=== PATIENT | male | born 1965 | race Caucasian/White ===

== ENCOUNTER 2016-10-14 05:23 | Emergency (ER) | payer OTHER ==
--- NOTE | 2016-10-14 06:35 | RADIOLOGY REPORT (SQ) ---
EXAM DESCRIPTION: CT HEAD WITHOUT COMPLETED DATE/TIME: 10/14/2016 6:20 am REASON FOR STUDY: new onset seizure COMPARISON: None. TECHNIQUE: Axial images acquired through the brain without intravenous contrast. Images reviewed wi th bone, brain and subdural windows. Images stored on PACS. All CT scanners at this facility use dose modulation, iterative reconstruction, and/or weight based d osing when appropriate to reduce radiation dose to as low as reasonably achievable (ALARA). [facility]: Dose Right [facility]: CareDose [facility]: Dose Right [facility]: Teradose 4D [facility]: Smart Fonality RADIATION DOSE: Up-to-date CT equipment and radiation dose reduction techniques were employed. CTDIv ol: 64.6 mGy. DLP: 1163 mGy-cm. mGy. LIMITATIONS: None. FINDINGS: VENTRICLES: Normal size and contour. CEREBRUM: No masses. No hemorrhage. No midline shift. Normal jensen/white matter differentiation. N o evidence for acute infarction. CEREBELLUM: No masses. No hemorrhage. No alteration of density. No evidence for acute infarction. EXTRAAXIAL SPACES: No fluid collections. No masses. ORBITS AND GLOBE: No intra- or extraconal masses. Normal contour of globe without masses. CALVARIUM: No fracture. PARANASAL SINUSES: No fluid or mucosal thickening. SOFT TISSUES: No mass or hematoma. OTHER: No other significant finding. IMPRESSION: No acute intracranial abnormality identified. TECHNICAL DOCUMENTATION: JOB ID: [id number] Quality ID # [id number]: Final reports with documentation of one or more dose reduction techniques (e.g., Au tomated exposure control, adjustment of the mA and/or kV according to patient size, use of iterative reconstruction technique) 2010 [employer]- All Rights Reserved
[2016-10-14 06:53] LABS: ABSOLUTE EOSINOPHILS # (AUTO) 0.1 10^3/uL (0.0-0.6); ABSOLUTE MONOCYTES (AUTO) 0.4 10^3/uL (0.1-1.4); ABSOLUTE NEUT (AUTO) 3.9 10^3/uL (1.7-8.2); BASOPHILS % (AUTO) 0.7 % (0-2); EOSINOPHILS % (AUTO) 2.2 % (0-6); HEMATOCRIT 40.6 % (37.9-51.0); HGB HCT DIFFERENCE 1.4; LYMPHOCYTES % (AUTO) 17.9 % (13-45); MEAN CORPUSCULAR HEMOGLOBIN 32.4 pg (27.0-33.4); MEAN CORPUSCULAR HGB CONC 34.4 g/dL (32.0-36.0); MEAN CORPUSCULAR VOLUME 94 fl (80-97); MONOCYTES % (AUTO) 7.5 % (3-13); RED BLOOD COUNT 4.31 10^6/uL (4.35-5.55); RED CELL DISTRIBUTION WIDTH 13.1 % (11.5-14.0); SEGMENTED NEUTROPHILS % (AUTO) 71.7 % (42-78); WHITE BLOOD COUNT 5.5 10^3/uL (4.0-10.5)
[2016-10-14 07:00] LABS: ALANINE AMINOTRANSFERASE 16 U/L (21-72); ALBUMIN 4.4 g/dL (3.5-5.0); ALKALINE PHOSPHATASE 91 U/L (38-126); ANION GAP 14 (5-19); ASPARTATE AMINO TRANSFERASE 41 U/L (17-59); BILIRUBIN,DIRECT 0.4 mg/dL (0.0-0.4); BILIRUBIN,TOTAL 0.6 mg/dL (0.2-1.3); BLOOD UREA NITROGEN 16 mg/dL (7-20); CALCIUM 8.7 mg/dL (8.4-10.2); CARBON DIOXIDE 22 mmol/L (22-30); CHLORIDE 96 mmol/L (98-107); CREATININE RESULT 0.85 mg/dL (0.52-1.25); GLUCOSE 96 mg/dL (75-110); POTASSIUM 4.2 mmol/L (3.6-5.0); SODIUM 131.8 mmol/L (137-145); TOTAL PROTEIN 7.6 g/dL (6.3-8.2)
[2016-10-14 07:01] LABS: ALCOHOL < 10 mg/dL (NONE DETECTED)
--- NOTE | 2016-10-14 07:54 | ER Document Report ---
ED General - General Chief Complaint: Probable Seizure Stated Complaint: POSSIBLE SEIZURE/ALOC Time Seen by Provider: 10/14/16 05:50 Mode of Arrival: Ambulatory Information source: Patient Notes: 51-year-old male presents with seizure-like activity at home. Patient has a history of hyponatremia hyperkalemia. seizure lasted approximately 2 minutes. no hx of seizures. pt was shakng, foaming at the mouth, then confused after pt is now alert oriented, denies any pain, notes abrasion to the left hand TRAVEL OUTSIDE OF THE [place] IN LAST 30 DAYS: No - HPI Onset: Just prior to arrival Onset/Duration: Sudden Quality of pain: No pain Severity: Mild Pain Level: Denies Associated symptoms: None Exacerbated by: Denies Relieved by: Denies Similar symptoms previously: No Recently seen / treated by doctor: No - Related Data Allergies/Adverse Reactions: No Known Allergies Allergy (Unverified 11/16/12 08:09) Past Medical History - Social History Smoking Status: Unknown if Ever Smoked Cigarette use (# per day): No Chew tobacco use (# tins/day): No Smoking Education Provided: No Frequency of alcohol use: Heavy Family History: Reviewed & Not Pertinent Endocrine Medical History: Reports: Hx Hypothyroidism Past Surgical History: Reports: Hx Orthopedic Surgery - ACL REPAIR, Hx Thyroid Surgery - THYROID CANER SURGERY X 2. Review of Systems - Review of Systems Notes: REVIEW OF SYSTEMS: CONSTITUTIONAL : Denies fever, chills, or sweats. Denies recent illness. EENT: Denies eye, ear, throat, or mouth pain or symptoms. Denies nasal or sinus congestion or discharge. Denies throat, tongue, or mouth swelling or difficulty swallowing. CARDIOVASCULAR: Denies chest pain. Denies palpitations or racing or irregular heart beat. Denies ankle edema. RESPIRATORY: Denies cough, cold, or chest congestion. Denies shortness of breath, difficulty breathing, or wheezing. GASTROINTESTINAL: Denies abdominal pain or distention. Denies nausea, vomiting , or diarrhea. Denies blood in vomitus, stools, or per rectum. Denies black, tarry stools. Denies constipation. GENITOURINARY: Denies difficulty urinating, painful urination, burning, frequency, blood in urine, or discharge. MUSCULOSKELETAL: Denies back or neck pain or stiffness. Denies joint pain or swelling. SKIN: Denies rash, lesions or sores. HEMATOLOGIC : Denies easy bruising or bleeding. LYMPHATIC: Denies swollen, enlarged glands. NEUROLOGICAL: admits ot seizure like activity PSYCHIATRIC: Denies anxiety or stress. Denies depression, suicidal ideation, or homicidal ideation. ALL OTHER SYSTEMS REVIEWED AND NEGATIVE. Dictation was performed using [employer] voice recognition software PHYSICAL EXAMINATION: GENERAL: Well-appearing, well-nourished and in no acute distress. HEAD: Atraumatic, normocephalic. EYES: Pupils equal round and reactive to light, extraocular movements intact, sclera anicteric, conjunctiva are normal. ENT: Nares patent, oropharynx clear without exudates. Moist mucous membranes. NECK: Normal range of motion, supple without lymphadenopathy LUNGS: Breath sounds clear to auscultation bilaterally and equal. No wheezes rales or rhonchi. HEART: Regular rate and rhythm without murmurs ABDOMEN: Soft, nontender, nondistended abdomen. No guarding, no rebound. No masses appreciated. Musculoskeletal: Normal range of motion, no pitting or edema. No cyanosis. NEUROLOGICAL: Cranial nerves grossly intact. Normal speech, normal gait. Normal sensory, motor exams PSYCH: Normal mood, normal affect. SKIN: abrasion to the left hand dorsal aspect Physical Exam - Vital signs Vitals: BP Pulse Ox 144/93 H 98 10/14/16 05:26 10/14/16 05:26 Course - Re-evaluation Re-evalutation: 10/14/16 07:52 mild hyponatremia noted, pt had seizure like activity. pt denies any fevers or chills, nausea or vomiting. pt ct head was negative pt overall at baseline, requests dc home pt not allowed to drive until cleared by neurology After performing a Medical Screening Examination, I estimate there is LOW risk for ACUTE GLAUCOMA, TEMPORAL ARTERITIS, MENINGITIS, INCRANIAL HEMORRHAGE, or ISCHEMIC STROKE thus I consider the discharge disposition reasonable. I have reevaluated this patient multiple times and no significant life threatening changes are noted. The patient and I have discussed the diagnosis and risks, and we agree with discharging home with close follow-up with the understanding that symptoms and presentations can change. We also discussed returning to the Emergency Department immediately if new or worsening symptoms occur. We have discussed the symptoms which are most concerning (e.g., changing or worsening symptoms, new numbness or weakness, vomiting, fever) that necessitate immediate return. - Vital Signs Vital signs: Temp Pulse Resp BP Pulse Ox 98.1 F 13 104/66 97 10/14/16 06:03 10/14/16 07:01 10/14/16 07:00 10/14/16 07:01 - Laboratory Result Diagrams: 10/14/16 05:38 10/14/16 05:38 Laboratory results interpreted by me: 10/14/16 10/14/16 05:38 05:38 RBC 4.31 L Plt Count 147 L Sodium 131.8 L Chloride 96 L ALT 16 L - Diagnostic Test Radiology reviewed: Image reviewed, Reports reviewed - No acute abnormality - EKG Interpretation by Me EKG shows normal: Sinus rhythm, [place], Intervals, QRS Complexes Discharge - Discharge Clinical Impression: Hyponatremia, Seizure-like activity Condition: Stable Disposition: HOME, SELF-CARE Instructions: New Seizure ([facility]) Referrals: SUSANA TERRY MD [ACTIVE STAFF] - Follow up in 3-5 days
[2016-10-14 08:06] VITALS: BP 124/86
--- NOTE | 2016-10-16 13:59 | EKG REPORT ---
SEVERITY:- BORDERLINE ECG - SINUS RHYTHM BORDERLINE T ABNORMALITIES, INFERIOR LEADS : Confirmed by: Armida Mackey MD 16-Oct-2016 13:57:42
== END 2016-10-14 08:21 | disposition home or self-care (01) ==
LOC: ER 05:23
DX: R29.818 Other symptoms and signs involving the nervous system (principal); E87.1 Hypo-osmolality and hyponatremia; R41.0 Disorientation, unspecified; S60.512A Abrasion of left hand, initial encounter; X58.XXXA Exposure to other specified factors, initial encounter
CPT/HCPCS: 36415; 70450; 80053; 80307; 84443; 85025; 93005; 93010; 99285

== ENCOUNTER 2017-01-03 06:35 | Emergency (ER) | payer SELFPAY ==
[2017-01-03 07:05] LABS: ABSOLUTE EOSINOPHILS # (AUTO) 0.1 10^3/uL (0.0-0.6); ABSOLUTE LYMPHOCYTES (AUTO) 0.9 10^3/uL (0.5-4.7); ABSOLUTE MONOCYTES (AUTO) 0.3 10^3/uL (0.1-1.4); ABSOLUTE NEUT (AUTO) 3.3 10^3/uL (1.7-8.2); BASOPHILS % (AUTO) 0.6 % (0-2); EOSINOPHILS % (AUTO) 1.8 % (0-6); HEMATOCRIT 39.4 % (37.9-51.0); HEMOGLOBIN 13.4 g/dL (13.5-17.0); HGB HCT DIFFERENCE 0.8; LYMPHOCYTES % (AUTO) 19.3 % (13-45); MEAN CORPUSCULAR HEMOGLOBIN 31.7 pg (27.0-33.4); MEAN CORPUSCULAR VOLUME 93 fl (80-97); MONOCYTES % (AUTO) 6.7 % (3-13); RED BLOOD COUNT 4.22 10^6/uL (4.35-5.55); RED CELL DISTRIBUTION WIDTH 13.1 % (11.5-14.0); SEGMENTED NEUTROPHILS % (AUTO) 71.6 % (42-78); WHITE BLOOD COUNT 4.6 10^3/uL (4.0-10.5)
[2017-01-03 07:17] LABS: ALANINE AMINOTRANSFERASE 35 U/L (21-72); ALBUMIN 4.3 g/dL (3.5-5.0); ALKALINE PHOSPHATASE 72 U/L (38-126); ANION GAP 10 (5-19); ASPARTATE AMINO TRANSFERASE 26 U/L (17-59); BILIRUBIN,DIRECT 0.3 mg/dL (0.0-0.4); BILIRUBIN,TOTAL 0.7 mg/dL (0.2-1.3); BLOOD UREA NITROGEN 16 mg/dL (7-20); CALCIUM 8.8 mg/dL (8.4-10.2); CARBON DIOXIDE 28 mmol/L (22-30); CHLORIDE 95 mmol/L (98-107); CREATININE RESULT 0.85 mg/dL (0.52-1.25); GLUCOSE 94 mg/dL (75-110); MAGNESIUM 1.7 mg/dL (1.6-2.3); POTASSIUM 3.9 mmol/L (3.6-5.0); SODIUM 133.1 mmol/L (137-145)
[2017-01-03 07:20] LABS: ALCOHOL < 10 mg/dL (NONE DETECTED)
[2017-01-03] MEDS ORDERED: ONDANSETRON 4 MG TAB.RAPDIS PO ONE (07:27)
[2017-01-03] MEDS ORDERED: LEVETIRACETAM 500 MG TABLET PO ONE (07:28)
--- NOTE | 2017-01-03 07:28 | RADIOLOGY REPORT (SQ) ---
EXAM DESCRIPTION: CT HEAD WITHOUT COMPLETED DATE/TIME: 01/03/2017 7:06 am REASON FOR STUDY: seizure COMPARISON: 10/14/2016. TECHNIQUE: Axial images acquired through the brain without intravenous contrast. Images reviewed wi th bone, brain and subdural windows. Images stored on PACS. All CT scanners at this facility use dose modulation, iterative reconstruction, and/or weight based d osing when appropriate to reduce radiation dose to as low as reasonably achievable (ALARA). [facility]: Dose Right [facility]: CareDose [facility]: Dose Right [facility]: Teradose 4D [facility]: Smart [employer] RADIATION DOSE: Up-to-date CT equipment and radiation dose reduction techniques were employed. CTDIv ol: 64.6 mGy. DLP: 1163 mGy-cm. mGy. LIMITATIONS: None. FINDINGS: VENTRICLES: Normal size and contour. CEREBRUM: No masses. No hemorrhage. No midline shift. No evidence for acute infarction. Normal gra y/white matter differentiation. No areas of low density in the white matter. CEREBELLUM: No masses. No hemorrhage. No alteration of density. No evidence for acute infarction. EXTRAAXIAL SPACES: No fluid collections. No masses. ORBITS AND GLOBE: No intra- or extraconal masses. Normal contour of globe without masses. CALVARIUM: No fracture. PARANASAL SINUSES: Minimal right maxillary mucosal thickening. SOFT TISSUES: Moderate right periorbital and buccal soft tissue swelling. OTHER: No other significant finding. IMPRESSION: No acute intracranial findings. Moderate facial swelling. EVIDENCE OF ACUTE STROKE: NO. COMMENT: Quality ID # [id number]: Final reports with documentation of one or more dose reduction techniques (e.g., Automated exposure control, adjustment of the mA and/or kV according to patient size, use of iterative reconstruction technique) TECHNICAL DOCUMENTATION: JOB ID: [id number]- All Rights Reserved
--- NOTE | 2017-01-03 07:29 | ER Document Report ---
ED Seizure <SHIVANI MEDRANO - Last Filed: 01/03/17 08:34> - General Mode of Arrival: Ambulatory Information source: Patient - HPI Patient complains to provider of: History of seizures <RENATE ROA - Last Filed: 01/03/17 10:15> - General Chief Complaint: Probable Seizure Stated Complaint: POSSIBLE SEIZURE Time Seen by Provider: 01/03/17 07:11 Notes: Patient is a 51-year-old male who presents to the emergency department today secondary to possible seizure. Patient has had episodes like this in the past where he wakes up on the floor during his sleep and he does not know what happened. Patient states that he has been seen by a neurologist who did an MRI but he has not had an EGD done yet. Patient states he was scheduled for one last week but he had to miss it due to a work obligation. Patient has not been formally diagnosed with a seizure disorder yet. at bedside states she was in their daughter's room when they heard a noise, she found the patient on the floor. Patient states he does not remember anything. Patient complains of right-sided facial pain stating he thinks he hit is face on something during the episode. Patient was incontinent during this episode. (RENATE ROA) - Related Data Allergies/Adverse Reactions: No Known Allergies Allergy (Unverified 11/16/12 08:09) Past Medical History - General Information source: Patient - Social History Smoking Status: Never Smoker Cigarette use (# per day): No Frequency of alcohol use: Heavy - daily Drug Abuse: None Lives with: Family Family History: Reviewed & Not Pertinent Neurological Medical History: Reports: Hx Seizures Endocrine Medical History: Reports: Hx Hypothyroidism Past Surgical History: Reports: Hx Orthopedic Surgery - ACL REPAIR, Hx Thyroid Surgery - THYROID CANER SURGERY X 2. <RENATE ROA - Last Filed: 01/03/17 10:15> Review of Systems - Review of Systems Constitutional: No symptoms reported EENT: See HPI, Other - facial pain, swelling Cardiovascular: No symptoms reported Respiratory: No symptoms reported Gastrointestinal: No symptoms reported Genitourinary: No symptoms reported Male Genitourinary: No symptoms reported Musculoskeletal: No symptoms reported Skin: No symptoms reported Hematologic/Lymphatic: No symptoms reported Neurological/Psychological: See HPI, Seizure - ? <RENATE ROA - Last Filed: 01/03/17 10:15> Physical Exam <SHIVANI MEDRANO - Last Filed: 01/03/17 08:34> <RENATE ROA - Last Filed: 01/03/17 10:15> - Vital signs Vitals: Temp Pulse Resp BP Pulse Ox 97.9 F 63 16 143/83 H 92 01/03/17 06:41 01/03/17 06:41 01/03/17 06:41 01/03/17 06:41 01/03/17 06:41 - Notes Notes: Physical Exam: General: Alert, appears uncomfortable. HEENT: Normocephalic. Left pupil is elliptical in shape which is baseline, both pupils are reactive to light. Periorbital/eyelid ecchymosis, right eye is swollen shut. When eye is manually opened, patient has normal vision. Nose appears to be slightly deviated to the left but patient does not complain of pain with palpation of nose. Small bite stephanie to tip of tongue, no active bleeding. Swelling over right maxillary area. 2mm transverse laceration with slight oozing of blood. Extraocular movements intact. Oropharynx clear. Neck: Supple. Non-tender. Respiratory: No respiratory distress. Clear and equal breath sounds bilaterally. Cardiovascular: Regular rate and rhythm. Abdominal: Normal Inspection. Non-tender. No distension. Normal Bowel Sounds. Back: Non-tender. No deformity or step off. Extremities: Moves all four extremities. Upper extremities: Normal inspection. Normal ROM. Lower extremities: Normal inspection. No edema. Normal ROM. Neurological: Normal cognition. AAOx4. Normal speech. Psychological: Normal affect. Normal Mood. Skin: see HEENT (RENATE ROA) Course - Laboratory Result Diagrams: 01/03/17 06:40 01/03/17 06:40 - Diagnostic Test Radiology reviewed: Image reviewed, Reports reviewed - CT scans of the head and neck are unremarkable, CT scan of the face shows contusion with soft tissue swelling in the right buccal and periorbital tissues. There small gas bubbles in the deep soft tissues lateral to the right paracentral mandible. This is most likely due to the recent contusion. - EKG Interpretation by Ar EKG shows normal: Sinus rhythm, [place], Intervals, QRS Complexes. abnormal: ST-T Waves - Nonspecific inferior T abnormalities Rate: Normal - 67 Rhythm: NSR When compared to previous EKG there are: No significant change <SHIVANI MEDRANO - Last Filed: 01/03/17 08:34> - Laboratory Result Diagrams: 01/03/17 06:40 01/03/17 06:40 <RENATE ROA - Last Filed: 01/03/17 10:15> - Vital Signs Vital signs: Temp Pulse Resp BP Pulse Ox 97.6 F 63 14 132/82 H 95 01/03/17 09:01 01/03/17 06:41 01/03/17 09:01 01/03/17 09:01 01/03/17 09:01 - Laboratory Laboratory results interpreted by me: 01/03/17 01/03/17 06:40 06:40 RBC 4.22 L Hgb 13.4 L Plt Count 149 L Sodium 133.1 L Chloride 95 L Discharge <SHIVANI MEDRANO - Last Filed: 01/03/17 08:34> <RENATE ROA - Last Filed: 01/03/17 10:15> - Discharge Clinical Impression: Seizure Contusion of face Qualifiers: Encounter type: initial encounter Qualified Code(s): S00.83XA - Contusion of other part of head, initial encounter Condition: Stable Disposition: HOME, SELF-CARE Additional Instructions: Seizure You have had a seizure. Seizure disorders (epilepsy) of one sort or another affect about one out of 50 people. The seizure occurs because of abnormal electrical activity in the brain. Seizures may be due to drugs and alcohol, strokes, brain injury, or infection. In the most common form of epilepsy, no cause can be found. You will require further evaluation to determine the cause of your seizure, and to determine whether anti-seizure medication is required. This follow-up testing is important, so please call us if you encounter problems with scheduling of tests or appointments. YOU SHOULD NOT DRIVE until released to do so by your physician. The law requires that seizures be reported to the bus van driver's license bureau--a seizure while driving could be catastrophic. Call the doctor if seizures recur, or if you develop new symptoms such as fever, severe headache, stiff neck, confusion or increasing sleepiness, weakness or numbness, or visual problems. Contusion Your injury has resulted in a contusion -- a crushing of the deep tissues. No injury to important structures was detected during the physician's exam. Contusions vary in the amount of pain they cause, and in the length of time required for healing. Typically, the area will become bruised, and will remain painful to touch for two or three weeks. However, most patients are back to working and playing within a few days. After the initial period of rest and cold-packs, your symptoms (together with the doctor's recommendations) will determine how rapidly you can get back to full activity. Usually this means "do what feels okay, but don't do things that hurt." If re-examination was recommended, it's important to follow up as instructed. Call the doctor or return any time if pain increases, if swelling becomes severe, if you develop numbness or weakness in an injured extremity, or if any other alarming symptoms occur. TAKE THE MEDICATIONS PRESCRIBED. TAKE TYLENOL AND IBUPROFEN OR ALEVE FOR PAIN IF NEEDED. USE ICE-PACKS TODAY TO REDUCE THE SWELLING. FOLLOW UP WITH YOUR NEUROLOGIST. RETURN TO THE EMERGENCY ROOM IF ANY NEW OR WORSENING SYMPTOMS. Prescriptions: Amoxicillin Trihydrate [Amoxil 500 mg Capsule] 500 mg PO TID #21 cap Levetiracetam [Keppra 500 mg Tablet] 500 mg PO Q12 #60 tablet Forms: Return to School Scribe Attestation: 01/03/17 08:43 I personally performed the services described in the documentation, reviewed and edited the documentation which was dictated to the scribe in my presence, and it accurately records my words and actions. (SHIVANI MEDRANO) Scribe Documentation - Scribe Written by Lars:: Lars Daniel, 01/03/2017 [id number] acting as scribe for :: Tico <RENATE ROA - Last Filed: 01/03/17 10:15>
--- NOTE | 2017-01-03 07:32 | RADIOLOGY REPORT (SQ) ---
EXAM DESCRIPTION: CT CERVICAL SPINE WITHOUT COMPLETED DATE/TIME: 01/03/2017 7:06 am REASON FOR STUDY: seizure COMPARISON: None. TECHNIQUE: Axial images acquired through the cervical spine without intravenous contrast. Images re viewed with lung, soft tissue and bone windows. Reconstructed coronal and sagittal MPR images review ed. Images stored on PACS. All CT scanners at this facility use dose modulation, iterative reconstruction, and/or weight based d osing when appropriate to reduce radiation dose to as low as reasonably achievable (ALARA). [facility]: Dose Right [facility]: CareDose [facility]: Dose Right [facility]: Teradose 4D [facility]: Smart [employer]ogram RADIATION DOSE: Up-to-date CT equipment and radiation dose reduction techniques were employed. CTDIv ol: 22.4 mGy. DLP: 413 mGy-cm. mGy. LIMITATIONS: None. FINDINGS: ALIGNMENT: Anatomic. MINERALIZATION: Normal. VERTEBRAL BODIES: No fractures or dislocation. Minimal developmental C4 and C5 anterior vertebral he ight loss. DISCS: Moderate disc desiccation between the C2 and C7 levels. FACETS, LATERAL MASSES, POSTERIOR ELEMENTS: No fractures. No dislocation. No acute findings. Mild spondylosis of the mid cervical spine. HARDWARE: None in the spine. VISUALIZED RIBS: No fractures. LUNG APICES AND SOFT TISSUES: No significant or acute findings. OTHER: No other significant finding. IMPRESSION: No acute findings. 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 TECHNICAL DOCUMENTATION: JOB ID: [id number] Quality ID # [id number]: Final reports with documentation of one or more dose reduction techniques (e.g., Au tomated exposure control, adjustment of the mA and/or kV according to patient size, use of iterative reconstruction technique) 2010 [employer]- All Rights Reserved
--- NOTE | 2017-01-03 07:41 | RADIOLOGY REPORT (SQ) ---
EXAM DESCRIPTION: CT FACIAL AREA WITHOUT COMPLETED DATE/TIME: 01/03/2017 7:06 am REASON FOR STUDY: seizure COMPARISON: None. TECHNIQUE: Noncontrasted images through the facial bones and orbits windowed for bone and soft tissu e. Additional coronal and sagittal reconstructed images reviewed. All images stored on PACS. All CT scanners at this facility use dose modulation, iterative reconstruction, and/or weight based d osing when appropriate to reduce radiation dose to as low as reasonably achievable (ALARA). [facility]: Dose Right [facility]: CareDose [facility]: Dose Right [facility]: Teradose 4D [facility]: [employer] RADIATION DOSE: Up-to-date CT equipment and radiation dose reduction techniques were employed. CTDIv ol: 30.4 mGy. DLP: 587 mGy-cm. mGy. LIMITATIONS: None. FINDINGS: FACIAL BONES: No fracture or bone lesion. ORBITS: Intact. No fracture. Symmetric intact globes and retroorbital soft tissues. PARANASAL SINUSES: Minimal right maxillary mucosal thickening. Dextroconvex nasal septum. SOFT TISSUES: Moderate swelling, and edema of right buccal and periorbital soft tissues. Small gas b ubbles at the lateral aspect of the right mandible. INFERIOR BRAIN: Limited view. No acute findings. OTHER: No other significant finding. IMPRESSION: Moderate swelling of right buccal in periorbital soft tissues. Small gas bubbles in the deep soft tissues lateral to the right paracentral mandible. Differential diagnosis includes contus ion, edema, and cellulitis. Otherwise intact facial bones. TECHNICAL DOCUMENTATION: JOB ID: [id number] Quality ID # [id number]: Final reports with documentation of one or more dose reduction techniques (e.g., Au tomated exposure control, adjustment of the mA and/or kV according to patient size, use of iterative reconstruction technique) 2010 [employer]- All Rights Reserved
--- NOTE | 2017-01-03 08:08 | EKG REPORT ---
SEVERITY:- ABNORMAL ECG - SINUS RHYTHM FIRST DEGREE AV BLOCK NONSPECIFIC T ABNORMALITIES, INFERIOR LEADS : Confirmed by: Raúl Malagon MD 03-Jan-2017 08:07:21
[2017-01-03 09:19] VITALS: BP 132/82
== END 2017-01-03 09:45 | disposition home or self-care (01) ==
LOC: ER 06:35
DX: S00.83XA Contusion of other part of head, initial encounter (principal); R56.9 Unspecified convulsions; X58.XXXA Exposure to other specified factors, initial encounter
CPT/HCPCS: 93005; 99284; 36415; 80307; 83735; 85025; 80053; 70450; 70486; 72125; 93010; L0120; S0119

== ENCOUNTER 2017-02-23 12:41 | Emergency (ER) | payer OTHER ==
--- NOTE | 2017-02-23 13:14 | EKG REPORT ---
SEVERITY:- NORMAL ECG - SINUS RHYTHM : Confirmed by: Raúl Malagon MD 23-Feb-2017 13:13:22
--- NOTE | 2017-02-23 14:21 | ER Document Report ---
ED Medical Screen (RME) - General Mode of Arrival: Ambulatory Information source: Patient TRAVEL OUTSIDE OF THE [place] IN LAST 30 DAYS: No - HPI Patient complains to provider of: Chest Pain Onset: Yesterday Associated Symptoms: Other - see notes above <NATIVIDAD ALMAGUER - Last Filed: 02/23/17 16:09> <VILLAMESERET Jerome - Last Filed: 02/23/17 21:09> - General Chief Complaint: Chest Pain Stated Complaint: CHEST PAIN Time Seen by Provider: 02/23/17 14:16 Notes: 51-year-old male with history of seizures and hypothyroidism presents to the ED complaining of substernal chest pain that started yesterday. Patient describes the pain as "pressure" and it does not radiate. Patient had 2-3 episodes of this pressure-like pain this morning which lasted for approximately 30 seconds each. Patient noticed that his breathing is "heavier" during these episodes and that he is also experiencing lightheadedness. Patient is currently on Synthroid. (NATIVIDAD ALMAGUER) - Related Data Allergies/Adverse Reactions: No Known Allergies Allergy (Verified 02/23/17 12:42) Home Medications: Current Home Medications Levetiracetam [Keppra 500 mg Tablet] 500 mg PO DAILY 02/23/17 [History] Past Medical History - General Information source: Patient - Social History Chew tobacco use (# tins/day): No Frequency of alcohol use: Heavy Drug Abuse: None Neurological Medical History: Reports: Hx Seizures Endocrine Medical History: Reports: Hx Hypothyroidism Renal/ Medical History: Denies: Hx Peritoneal Dialysis Past Surgical History: Reports: Hx Orthopedic Surgery - ACL REPAIR, Hx Thyroid Surgery - THYROID CANER SURGERY X 2. <NATIVIDAD ALMAGUER - Last Filed: 02/23/17 16:09> Review of Systems - Review of Systems Constitutional: No symptoms reported EENT: No symptoms reported Cardiovascular: See HPI, Chest pain, Lightheaded Respiratory: See HPI, Short of breath Gastrointestinal: No symptoms reported Genitourinary: No symptoms reported Male Genitourinary: No symptoms reported Musculoskeletal: No symptoms reported Skin: No symptoms reported Hematologic/Lymphatic: No symptoms reported Neurological/Psychological: No symptoms reported -: Yes All other systems reviewed and negative <NATIVIDAD ALMAGUER - Last Filed: 02/23/17 16:09> Physical Exam - General General appearance: Alert In distress: None - Respiratory Respiratory status: No respiratory distress Breath sounds: Normal - Cardiovascular Rhythm: Regular Heart sounds: Normal auscultation <NATIVIDAD ALMAGUER - Last Filed: 02/23/17 16:09> - Vital signs Vitals: Temp Pulse Resp BP Pulse Ox 97.6 F 63 18 124/78 100 02/23/17 12:53 02/23/17 12:53 02/23/17 12:53 02/23/17 12:53 02/23/17 12:53 Course - Laboratory Result Diagrams: 02/23/17 14:30 02/23/17 14:30 <NATIVIDAD ALMAGUER - Last Filed: 02/23/17 16:09> - Laboratory Result Diagrams: 02/23/17 14:30 02/23/17 14:30 <MESERET DRIVER - Last Filed: 02/23/17 21:09> - Re-evaluation Re-evalutation: 02/23/17 21:08 I personally performed the services described in the documentation, reviewed and edited the documentation which was dictated to the scribe in my presence, and it accurately records my words and actions. (MESERET DRIVER) - Vital Signs Vital signs: Temp Pulse Resp BP Pulse Ox 97.6 F 63 18 130/81 H 100 02/23/17 12:53 02/23/17 12:53 02/23/17 12:53 02/23/17 17:01 02/23/17 17:01 - Laboratory Laboratory results interpreted by me: 02/23/17 14:30 Sodium 135.4 L Chloride 94 L Doctor's Discharge <NATIVIDAD ALMAGUER - Last Filed: 02/23/17 16:09> <MESERET DRIVER - Last Filed: 02/23/17 21:09> - Discharge Clinical Impression: Atypical chest pain Condition: Good Disposition: HOME, SELF-CARE Instructions: Chest Pain of Unclear Cause ([facility]) Additional Instructions: Home and rest highly suggest take at least an 81 mg aspirin per day. As we have both talked about you will need to follow-up with Dr. Phillips first of the week having out patient stress test conducted. Would not also her to have cholesterol levels checked depending when her last time was done. As we also discussed if the pain returns and you have any type of shortness of breath or health concerns at all return to ER for a repeat exam and possible admission for rule out. Forms: Elevated Blood Pressure Scribe Documentation - Scribe Written by Scribe:: Lars Orr, 02/23/2017 1612 acting as scribe for :: Long <NATIVIDAD ALMAGUER - Last Filed: 02/23/17 16:09>
[2017-02-23 14:46] LABS: ABSOLUTE EOSINOPHILS # (AUTO) 0.1 10^3/uL (0.0-0.6); ABSOLUTE MONOCYTES (AUTO) 0.4 10^3/uL (0.1-1.4); BASOPHILS % (AUTO) 0.7 % (0-2); EOSINOPHILS % (AUTO) 1.1 % (0-6); HEMATOCRIT 41.2 % (37.9-51.0); HEMOGLOBIN 14.2 g/dL (13.5-17.0); HGB HCT DIFFERENCE 1.4; LYMPHOCYTES % (AUTO) 17.9 % (13-45); MEAN CORPUSCULAR HEMOGLOBIN 31.9 pg (27.0-33.4); MEAN CORPUSCULAR HGB CONC 34.5 g/dL (32.0-36.0); MEAN CORPUSCULAR VOLUME 93 fl (80-97); MONOCYTES % (AUTO) 7.5 % (3-13); RED BLOOD COUNT 4.45 10^6/uL (4.35-5.55); RED CELL DISTRIBUTION WIDTH 13.1 % (11.5-14.0); SEGMENTED NEUTROPHILS % (AUTO) 72.8 % (42-78); WHITE BLOOD COUNT 5.5 10^3/uL (4.0-10.5)
--- NOTE | 2017-02-23 14:57 | RADIOLOGY REPORT (SQ) ---
EXAM DESCRIPTION: CHEST SINGLE VIEW COMPLETED DATE/TIME: 02/23/2017 2:37 pm REASON FOR STUDY: chest pain COMPARISON: None. EXAM PARAMETERS: NUMBER OF VIEWS: One view. TECHNIQUE: Single frontal radiographic view of the chest acquired. RADIATION DOSE: NA LIMITATIONS: None. FINDINGS: LUNGS AND PLEURA: No opacities, masses or pneumothorax. No pleural effusion. MEDIASTINUM AND HILAR STRUCTURES: No masses. Contour normal. HEART AND VASCULAR STRUCTURES: Heart normal in size. Normal vasculature. BONES: No acute findings. HARDWARE: None in the chest. OTHER: No other significant finding. IMPRESSION: NO ACUTE RADIOGRAPHIC FINDING IN THE CHEST. TECHNICAL DOCUMENTATION: JOB ID: [id number] [employer]- All Rights Reserved
[2017-02-23 15:07] LABS: ALANINE AMINOTRANSFERASE 27 U/L (21-72); ALBUMIN 4.8 g/dL (3.5-5.0); ALKALINE PHOSPHATASE 80 U/L (38-126); ANION GAP 12 (5-19); ASPARTATE AMINO TRANSFERASE 29 U/L (17-59); BILIRUBIN,DIRECT 0.3 mg/dL (0.0-0.4); BILIRUBIN,TOTAL 0.8 mg/dL (0.2-1.3); BLOOD UREA NITROGEN 14 mg/dL (7-20); CALCIUM 9.5 mg/dL (8.4-10.2); CARBON DIOXIDE 29 mmol/L (22-30); CHLORIDE 94 mmol/L (98-107); CREATININE RESULT 0.89 mg/dL (0.52-1.25); GLUCOSE 77 mg/dL (75-110); POTASSIUM 4.1 mmol/L (3.6-5.0); SODIUM 135.4 mmol/L (137-145); TOTAL PROTEIN 7.7 g/dL (6.3-8.2)
--- NOTE | 2017-02-23 17:16 | ER Document Report ---
ED Cardiac - General Chief Complaint: Chest Pain Stated Complaint: CHEST PAIN Time Seen by Provider: 02/23/17 14:16 Mode of Arrival: Ambulatory Information source: Patient Notes: Patient is a 51-year-old white male comes emergency room complaining of chest pain. Patient states he had an onset of chest pain yesterday evening between the hours of 2 PM and 6 PM the first was somewhere around the early portion of the afternoon and lasted approximately 30 seconds and then went away. He states it is been intermittent the rest of that afternoon and evening and then after 6 PM it got better and it went away. Patient states today it again started earlier today and and is come on about 2-3 times. Again last for 15-20 seconds today and then goes away. Patient denies any associations no shortness of breath no nausea no diaphoresis no radiation of pain it is all midsternal midepigastric area. Patient denies any other medical problems he also states that the only family history of cardiac problems is his mother's brother have had a history of heart problems. 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 Patient is been in the ER approximately 2 hours and 45 minutes and he is slightly upset that he has to wait. Patient denies any history of smoking. He currently takes no other medications according to patient. He sees Dr. Leiva at [facility]. She states she is not currently taking any medications for cholesterol states she has never been diagnosed with hypercholesterolemia. TRAVEL OUTSIDE OF THE [place] IN LAST 30 DAYS: No - HPI Patient complains to provider of: Chest pain Use of: denies: Alcohol, Amphetamines, Bath salts, Caffeine, Cocaine, Decongestants, Other Was the onset of pain: Sudden When did pain begin: 2 PM yesterday to 6 PM yesterday Is the pain a: New problem Chest pain location: Substernal. No: Axillary, Back, Pleuritic, Under breast, Other Quality of pain: Sharp, Stabbing Chest pain radiation location: denies: Left jaw, Left arm, Left shoulder, Right jaw, Right arm, Right shoulder, Back, Neck, None Severity now: None Severity at worst: Severe Pain level currently: 0 Chest pain precipitating factors: Again patient denies any known triggers. Cardiac risk factors: + Family history. denies: None, Diabetes, Hypertension, Smoker, Dyslipidemia, Hx CHF, Hx [place] Positive cardiac history: No Associated symptoms: None Exacerbated by: Denies Relieved by: Nothing Similar symptoms previously: No Recently seen / treated by doctor: No - Related Data Allergies/Adverse Reactions: No Known Allergies Allergy (Verified 02/23/17 12:42) Home Medications: Current Home Medications Levetiracetam [Keppra 500 mg Tablet] 500 mg PO DAILY 02/23/17 [History] Past Medical History - Social History Smoking Status: Never Smoker Cigarette use (# per day): No Chew tobacco use (# tins/day): No Smoking Education Provided: No Frequency of alcohol use: None Drug Abuse: None Lives with: Family Family History: Reviewed & Not Pertinent Patient has suicidal ideation: No Patient has homicidal ideation: No Neurological Medical History: Reports: Hx Seizures Endocrine Medical History: Reports: Hx Hypothyroidism Renal/ Medical History: Denies: Hx Peritoneal Dialysis Past Surgical History: Reports: Hx Orthopedic Surgery - ACL REPAIR, Hx Thyroid Surgery - THYROID CANER SURGERY X 2. Review of Systems - Review of Systems Constitutional: No symptoms reported EENT: No symptoms reported Cardiovascular: Chest pain Respiratory: No symptoms reported Gastrointestinal: No symptoms reported Genitourinary: No symptoms reported Male Genitourinary: No symptoms reported Musculoskeletal: No symptoms reported Skin: No symptoms reported Hematologic/Lymphatic: No symptoms reported Neurological/Psychological: No symptoms reported -: Yes All other systems reviewed and negative Physical Exam - Vital signs Vitals: Temp Pulse Resp BP Pulse Ox 97.6 F 63 18 124/78 100 02/23/17 12:53 02/23/17 12:53 02/23/17 12:53 02/23/17 12:53 02/23/17 12:53 Interpretation: Normal - Notes Notes: Patient stated as described already that he was at work yesterday when chest pain started it lasted for approximately 30 seconds then would go away come back and no specific other time last few seconds go away. It had total cessation of any pain at 6 PM. This morning patient woke up and again started with the discomfort on occasion. Less intensity less frequently. Patient got a little nervous so he came into ER to get checked out. Patient is upset because he has been here a little over 2 hours and 40 minutes and he has to leave the hospital. I have informed patient and since he is asked that his EKG appears normal labs are all normal on the first go through. Patient stating that he wants to leave. He is due for his next troponin at 1840 I do not want to make patient sign out AGAINST MEDICAL ADVICE and have explained to him that the [place] [employer] we will not with 2 negative troponins feel that a outpatient stress test within 5-7 days is very well warranted. Patient has agreed to stay let me draw a second troponin of 45 minutes to an hour early and if there is any bump in it going up he will stay and get worked up if there is no bump patient will go home and contact Dr. Leiva at [facility]. I feel that this is appropriate for the patient to do so at this time. This way he does not have to sign out AGAINST MEDICAL ADVICE we have an idea of what were possibly going to be able to do for follow-up. He has low risk factors with the exception of uncles on mother side having heart problems. - Respiratory Respiratory status: No respiratory distress Chest status: Nontender. No: Tender, Chest mass, Ecchymosis, No pleuritic chest pain, Pain on movement, Pain with cough, Pain with deep breathing, Wounds , Accessory muscle use, Prolonged expirations, Splinting, Other Breath sounds: Normal. No: Decreased air movement, Nonproductive cough, Productive cough, Rales, Rhonchi, Stridor, Wheezing, Other Chest palpation: Normal. No: Flail segment, [place] frothy sputum, Purulent sputum , Subcutaneous emphysema, Sucking chest wound, Tender, Ecchymosis, Wounds, Other - Cardiovascular Rhythm: Regular Heart sounds: Normal auscultation Murmur: No - Abdominal Inspection: Normal Distension: Distended, Tympanitic, Other - Examination patient's abdomen shows it to be mildly distended although there is no severe tenderness to percussion or palpation. There is also no tenderness to ballottement. Bowel sounds: Normal Tenderness: Tender, Guarding Organomegaly: No organomegaly - Back Back: Normal, Nontender - Extremities General upper extremity: Normal inspection, Normal strength General lower extremity: Normal inspection, Normal strength - Neurological Neuro grossly intact: Yes Cognition: Normal Orientation: AAOx4, Disoriented to events Roberto Coma Scale Eye Opening: Spontaneous Roberto Coma Scale Verbal: Oriented [place] Coma Scale Motor: Obeys Commands [place] Coma Scale Total: 15 Speech: Normal - Skin Skin Temperature: Warm Skin Moisture: Dry Skin Color: Normal, [place] Course - Vital Signs Vital signs: Temp Pulse Resp BP Pulse Ox 97.6 F 63 18 124/78 97 02/23/17 12:53 02/23/17 12:53 02/23/17 12:53 02/23/17 12:53 02/23/17 15:00 - Laboratory Result Diagrams: 02/23/17 14:30 02/23/17 14:30 Laboratory results interpreted by me: 02/23/17 14:30 Sodium 135.4 L Chloride 94 L - Diagnostic Test Radiology reviewed: Reports reviewed - EKG Interpretation by Me EKG shows normal: Sinus rhythm Rate: Bradycardia - Transfer of Care Notes: 02/23/17 18:05 Patient's second set of troponins came back negative as well was 0.12 at this point I feel safe enough to send patient home to follow-up with Dr. Leiva over [facility]. Place patient on an aspirin a day until such time as he can see Dr. Leiva. I have suggested that he have no severe activity over the next few days. He also knows to return to ER if the pain continues. Discharge - Discharge Clinical Impression: Atypical chest pain Condition: Good Disposition: HOME, SELF-CARE Instructions: Chest Pain of Unclear Cause ([facility]) Additional Instructions: Home and rest highly suggest take at least an 81 mg aspirin per day. As we have both talked about you will need to follow-up with Dr. Phillips first of the week having out patient stress test conducted. Would not also her to have cholesterol levels checked depending when her last time was done. As we also discussed if the pain returns and you have any type of shortness of breath or health concerns at all return to ER for a repeat exam and possible admission for rule out. Forms: Elevated Blood Pressure
[2017-02-23 19:28] VITALS: BP 130/81
== END 2017-02-23 17:30 | disposition home or self-care (01) ==
LOC: ER 12:41
DX: R07.89 Other chest pain (principal); R10.13 Epigastric pain; R14.0 Abdominal distension (gaseous); Z82.49 Family history of ischemic heart disease and other diseases of the circulatory system
CPT/HCPCS: 36415; 71010; 80053; 84484; 85025; 93005; 93010; 99285